=== PATIENT | female | born 1965 | race Caucasian/White ===

== ENCOUNTER 2018-04-23 07:29 | Emergency (ER) | payer MEDICAID ==
[~2018-04-23] VITALS: Ht 160 cm; Wt 68.0 kg
[2018-04-23] MEDS ORDERED: KETOROLAC 15MG/ML VIAL IV ONE (09:00)
[2018-04-23] MEDS ORDERED: SODIUM CHLORIDE 0.9% 1,000 ML IV ONE (09:00)
[2018-04-23] MEDS ORDERED: METOCLOPRAMIDE HCL 10MG/2ML VIAL IV ONE (09:00)
[2018-04-23] MEDS: METHYLPREDNISOLONE SOD SUCC 125 MG/2 ML VIAL IV SCH ×2 (10:32→10:34)
[2018-04-23 11:08] VITALS: BP 123/53
== END 2018-04-23 11:35 | disposition home or self-care (01) ==
LOC: ER 07:29
DX: R42 Dizziness and giddiness (principal); L50.9 Urticaria, unspecified
CPT/HCPCS: 82962; 96361; 96374; 96375; 99283; J1885; J2765; J2930; J7030; Z7610

== ENCOUNTER 2021-04-17 11:52 | Emergency (ER) | payer MEDICAID ==
[~2021-04-17] VITALS: Ht 154.9 cm; Wt 72.0 kg
[2021-04-17 12:35] VITALS: BP 160/67
[2021-04-17] MEDS ORDERED: MECLIZINE 25MG TABLET PO ONE (12:45)
[2021-04-17 13:53] LABS: BASOPHILS % 0.6 % (0.0-2.0); EOSINOPHILS % 5.4 % (0.0-5.0); HEMATOCRIT. 37.7 % (36.0-48.0); HEMOGLOBIN. 13.1 g/dL (12.0-16.0); LYMPHOCYTES % 30.3 % (20.0-50.0); MEAN CORPUSCULAR HEMOGLOBIN 29.4 pg (28.0-32.0); MEAN CORPUSCULAR VOLUME 84.7 fL (81.0-99.0); MEAN PLATELET VOLUME 8.7 fl (7.4-10.4); MONOCYTES % 9.3 % (2.0-8.0); NEUTROPHILS % 54.4 % (40.0-76.0); PLATELET 209 x1000/uL (130-400); RED BLOOD CELL COUNT 4.45 mill/uL (4.2-5.4); RED CELL DISTRIBUTION WIDTH 14.1 % (11.6-14.6)
[2021-04-17 13:59] LABS: CHLORIDE 108 mEq/L (98-107)
== END 2021-04-17 18:09 | disposition home or self-care (01) ==
LOC: ER 11:52
DX: I10 Essential (primary) hypertension (principal); H81.10 Benign paroxysmal vertigo, unspecified ear
CPT/HCPCS: 36415; 80053; 82962; 85025; 93005; 99284